=== PATIENT | female | born 1960 | race Caucasian/White ===

== ENCOUNTER 2024-06-16 13:47 | Emergency (ER) | payer SELFPAY ==
[~2024-06-16] VITALS: Ht 149.9 cm; Wt 67.0 kg
[2024-06-16 14:08] VITALS: O2SAT 100
[2024-06-16 15:13] VITALS: BP 112/60; PULSE 91; RESP 16; TEMP 36.9; O2SAT 100
[2024-06-16] MEDS: IBUPROFEN 600MG TABLET PO ONE (15:14)
[2024-06-16 15:33] LABS: CLARITY URINE CLEAR (CLEAR); COLOR URINE YELLOW (YELLOW); GLUCOSE URINE NEGATIVE (NEGATIVE); KETONES URINE NEGATIVE (NEGATIVE); LEUKOCYTE ESTERASE URINE 1+ (NEGATIVE); NITRITE URINE NEGATIVE (NEGATIVE); OCCULT BLOOD URINE NEGATIVE (NEGATIVE); PROTEIN URINE NEGATIVE (NEGATIVE); SPECIFIC GRAVITY URINE 1.011 (1.005-1.030); UROBILINOGEN URINE 0.2 E.U./dL (0.2-1.0)
[2024-06-16 16:07] LABS: BACTERIA URINE TRACE; RBC URINE NONE SEEN /hpf (0-2); SQUAMOUS EPITHELIAL CELL URINE RARE /lpf (RARE/1+)
[2024-06-16] MEDS ORDERED: NITR-87 MT (16:19)
[2024-06-16] MEDS ORDERED: IBUP-2029 MT (16:19)
== END 2024-06-16 17:04 | disposition home or self-care (01) ==
LOC: ER 13:47
DX: N39.0 Urinary tract infection, site not specified (principal)
CPT/HCPCS: 81003; 99283; Z7610 ×2